=== PATIENT | female | born 1960 | race Caucasian/White ===

== ENCOUNTER 2018-03-22 13:36 | Emergency (ER) | payer BC ==
[2018-03-22] MEDS ORDERED: IPRATROPIUM/ALBUTEROL 0.5-2.5 MG/3 ML AMPUL NEB ONE (14:56)
--- NOTE | 2018-03-22 15:23 | RADIOLOGY REPORT (SQ) ---
EXAM DESCRIPTION: CHEST 2 VIEWS COMPLETED DATE/TIME: 03/22/2018 3:15 pm REASON FOR STUDY: sob COMPARISON: 12/31/2013. EXAM PARAMETERS: NUMBER OF VIEWS: two views TECHNIQUE: Digital Frontal and Lateral radiographic views of the chest acquired. RADIATION DOSE: NA LIMITATIONS: none FINDINGS: LUNGS AND PLEURA: No opacities, masses or pneumothorax. No pleural effusion. MEDIASTINUM AND HILAR STRUCTURES: No masses or contour abnormalities. HEART AND VASCULAR STRUCTURES: Heart normal size. No evidence for failure. BONES: No acute findings. Degenerative changes in the spine with scoliosis. HARDWARE: None in the chest. OTHER: No other significant finding. IMPRESSION: NO ACUTE RADIOGRAPHIC FINDING IN THE CHEST. TECHNICAL DOCUMENTATION: JOB ID: [id number] [employer]- All Rights Reserved Reading location - IP/workstation name: [email or web address]
[2018-03-22 15:40] LABS: ABSOLUTE BASOPHILS # (AUTO) 0.1 10^3/uL (0.0-0.2); ABSOLUTE LYMPHOCYTES (AUTO) 1.3 10^3/uL (0.5-4.7); ABSOLUTE MONOCYTES (AUTO) 1.3 10^3/uL (0.1-1.4); ABSOLUTE NEUT (AUTO) 16.3 10^3/uL (1.7-8.2); BASOPHILS % (AUTO) 0.5 % (0-2); EOSINOPHILS % (AUTO) 0.1 % (0-6); HEMATOCRIT 49.7 % (36.0-47.0); HEMOGLOBIN 16.6 g/dL (12.0-15.5); LYMPHOCYTES % (AUTO) 6.9 % (13-45); MEAN CORPUSCULAR HEMOGLOBIN 29.7 pg (27.0-33.4); MEAN CORPUSCULAR HGB CONC 33.5 g/dL (32.0-36.0); MEAN CORPUSCULAR VOLUME 89 fl (80-97); MONOCYTES % (AUTO) 6.9 % (3-13); PLATELET COUNT 227 10^3/uL (150-450); RED CELL DISTRIBUTION WIDTH 13.8 % (11.5-14.0); SEGMENTED NEUTROPHILS % (AUTO) 85.6 % (42-78); TOTAL CELLS COUNTED % (AUTO) 100 %
[2018-03-22 16:09] LABS: ANION GAP 12 (5-19); BLOOD UREA NITROGEN 10 mg/dL (7-20); CALCIUM 9.8 mg/dL (8.4-10.2); CARBON DIOXIDE 27 mmol/L (22-30); CHLORIDE 103 mmol/L (98-107); GLUCOSE 118 mg/dL (75-110); POTASSIUM 4.1 mmol/L (3.6-5.0)
[2018-03-22] MEDS ORDERED: NORMAL SALINE 1000 ML 1,000 ML IV ONE (16:29)
--- NOTE | 2018-03-22 17:22 | RADIOLOGY REPORT (SQ) ---
EXAM DESCRIPTION: CTA CHEST COMPLETED DATE/TIME: 03/22/2018 5:04 pm REASON FOR STUDY: elevated d dimer COMPARISON: None TECHNIQUE: CT scan of the chest performed using helical scanning technique with dynamic intravenous contrast injection. Images reviewed with lung, soft tissue and bone windows. Reconstructed coronal and sagittal MPR images reviewed. Additional 3 dimensional post-processing performed to develop Maximal Intensity Projection images (WI P). All images stored on PACS. All CT scanners at this facility use dose modulation, iterative reconstruction, and/or weight based d osing when appropriate to reduce radiation dose to as low as reasonably achievable (ALARA). [facility]: Dose Right [facility]: CareDose [facility]: Dose Right [facility]: Teradose 4D [facility]: Orgger CONTRAST TYPE AND DOSE: contrast/concentration: Isovue 370.00 mg/ml; Total Contrast Delivered: 93.0 ml; Total Saline Delivered: 90.0 ml Contrast bolus adequate for pulmonary arteries and aorta. RENAL FUNCTION: BUN 10 creatinine 0.7. RADIATION DOSE: CT Rad equipment meets quality standard of care and radiation dose reduction techniq ues were employed. CTDIvol: 33.1 - 39.7 mGy. DLP: 1452 mGy-cm. . LIMITATIONS: None. FINDINGS: LUNGS AND PLEURA: No masses, infiltrates, or pneumothorax. No pleural effusions or pleura l calcifications. AORTA AND GREAT VESSELS: No aneurysm. No dissection. HEART: No pericardial effusion. No significant coronary artery calcifications. PULMONARY ARTERIES: No emboli visualized in the main pulmonary arteries or the segmental branches. HILAR AND MEDIASTINAL STRUCTURES: No identified masses or abnormal nodes. HARDWARE: None in the chest. UPPER ABDOMEN: Calyceal calculus in the left kidney. Limited exam. THYROID AND OTHER SOFT TISSUES: No masses. No adenopathy. BONES: No acute or significant finding. 3D MIPS: Confirm above findings. OTHER: No other significant finding. IMPRESSION: NORMAL CTA OF THE CHEST. NO PULMONARY EMBOLI. COMMENT: Quality ID # [id number]: Final reports with documentation of one or more dose reduction techniques (e.g., Automated exposure control, adjustment of the mA and/or kV according to patient size, use of iterative reconstruction technique) TECHNICAL DOCUMENTATION: JOB ID: [id number] [employer]- All Rights Reserved Reading location - IP/workstation name: [email or web address]
--- NOTE | 2018-03-22 17:24 | ER Document Report ---
ED General - General Chief Complaint: Shortness Of Breath Stated Complaint: COUGH, CONGESTION Time Seen by Provider: 03/22/18 14:53 TRAVEL OUTSIDE OF THE [place] IN LAST 30 DAYS: No - HPI Patient complains to provider of: Cough congestion Notes: Patient coming in today for cough congestion ongoing greater than week. Patient was seen in urgent care started on a course of steroids however no relief in her symptoms. Patient states symptoms started after a coworker was using bleach states since that time she has been congested and feeling short of breath. Patient also states recently had travel out of state. Otherwise denies any fevers chills nausea vomiting diarrhea denies any chest pain. - Related Data Allergies/Adverse Reactions: morphine [Morphine] Adverse Reaction (Verified 03/22/18 13:39) Past Medical History - Social History Smoking Status: Former Smoker Chew tobacco use (# tins/day): No Frequency of alcohol use: None Drug Abuse: None Family History: Hypertension Patient has suicidal ideation: No Patient has homicidal ideation: No Renal/ Medical History: Denies: Hx Peritoneal Dialysis Past Surgical History: Reports: Hx Adenoidectomy, Hx Appendectomy, Hx Breast Surgery - lumpectomy Left side., Hx Cholecystectomy, Hx Hysterectomy, Hx Tonsillectomy - Immunizations Immunizations up to date: No Hx Diphtheria, Pertussis, Tetanus Vaccination: No Review of Systems - Review of Systems Constitutional: No symptoms reported EENT: No symptoms reported Cardiovascular: No symptoms reported Respiratory: Short of breath, Wheezing Gastrointestinal: No symptoms reported Genitourinary: No symptoms reported Female Genitourinary: No symptoms reported Musculoskeletal: No symptoms reported Skin: No symptoms reported Hematologic/Lymphatic: No symptoms reported Neurological/Psychological: No symptoms reported Physical Exam - Vital signs Vitals: Temp Pulse Resp BP Pulse Ox 99.6 F 113 H 20 180/98 H 96 03/22/18 13:53 03/22/18 13:53 03/22/18 13:53 03/22/18 13:53 03/22/18 13:53 Interpretation: Normal - General General appearance: Appears well, Alert - HEENT Head: Normocephalic, Atraumatic Eyes: Normal Pupils: PERRL - Respiratory Respiratory status: No respiratory distress Chest status: Nontender Breath sounds: Wheezing Chest palpation: Normal - Cardiovascular Rhythm: Regular Heart sounds: Normal auscultation Murmur: No - Abdominal Inspection: Normal Distension: No distension Bowel sounds: Normal Tenderness: Nontender Organomegaly: No organomegaly - Back Back: Normal, Nontender - Extremities General upper extremity: Normal inspection, Nontender, Normal color, Normal ROM , Normal temperature General lower extremity: Normal inspection, Nontender, Normal color, Normal ROM , Normal temperature, Normal weight bearing. No: Melida's sign - Neurological Neuro grossly intact: Yes Cognition: Normal Orientation: AAOx4 [place] Coma Scale Eye Opening: Spontaneous Golden Coma Scale Verbal: Oriented Golden Coma Scale Motor: Obeys Commands [place] Coma Scale Total: 15 Speech: Normal Motor strength normal: LUE, RUE, LLE, RLE Sensory: Normal - Psychological Associated symptoms: Normal affect, Normal mood - Skin Skin Temperature: Warm Skin Moisture: Dry Skin Color: Normal Course - Re-evaluation Re-evalutation: 03/22/18 20:28 Patient feeling better after breathing treatments does feel like it did break up some of the congestion. D-dimers elevated therefore patient had to go undergo a CTA that was otherwise negative. Time discharge noted that fluids were not given patient had slight low-grade fever of 100.4. Patient still complaining of congestion and pressure. Because of these new findings will start the patient on azithromycin for possible underlying sinusitis. I believe the patient's respiratory issues are more likely reactive airway disease. Patient will be given an inhaler for home. Patient states understanding of her diagnosis and agrees to be discharged home 03/22/18 20:29 Leukocytosis more likely from recent steroids - Vital Signs Vital signs: Temp Pulse Resp BP Pulse Ox 98.7 F 98 18 147/90 H 97 03/22/18 19:02 03/22/18 19:02 03/22/18 19:02 03/22/18 19:02 03/22/18 19:02 - Laboratory Result Diagrams: 03/22/18 15:26 03/22/18 15:26 Laboratory results interpreted by me: 03/22/18 03/22/18 03/22/18 15:26 15:26 15:26 WBC 19.0 H RBC 5.60 H Hgb 16.6 H Hct 49.7 H Seg Neutrophils % 85.6 H Lymphocytes % 6.9 L Absolute Neutrophils 16.3 H D-Dimer 0.78 H Glucose 118 H Discharge - Discharge Clinical Impression: Sinusitis Reactive airway disease Qualifiers: Asthma severity: mild Asthma persistence: unspecified Qualified Code(s): J45.909 - Unspecified asthma, uncomplicated Condition: Good Disposition: HOME, SELF-CARE Instructions: Reactive Airway Disease ([facility]), Sinusitis ([facility]) Additional Instructions: Your laboratory studies x-ray CT scan today shows no signs of cardiac ischemia pneumonia lung disease blood clots within your lungs. Do believe you have reactive airway disease basically spasming of your airways causing the cough and causing shortness of breath. This may be exacerbated by underlying sinusitis infection. We will start you on a Z-Anton today please be sure you are drinking plenty of fluids stay well-hydrated make sure you are taking the inhaler as prescribed. Follow-up with your primary care physician. We treat this with medication called albuterol. Please use the inhaler that we gave you here in ER 2 puffs every 2-4 hours as needed for shortness of breath. Also give a prescription for another inhaler. Also recommend taking over-the- counter antihistamine. Please make sure you drink plenty of fluids to stay well -hydrated return to the ER symptoms worsen. Prescriptions: Albuterol Sulfate [Proair HFA Inhalation Aerosol 8.5 gm MDI] 2 puff IH Q4H PRN # 1 mdi PRN Reason: Azithromycin [Zithromax] 250 mg PO DAILY #4 tablet Forms: Return to Work Referrals: JON SON MD [Primary Care Provider] - Follow up as needed
[2018-03-22] MEDS ORDERED: ALBUTEROL SULFATE HFA (90 MCG/PUFF) 8 GM MDI (1 MDI/ER DISP) IH ONE (17:42)
[2018-03-22] MEDS ORDERED: ACETAMINOPHEN 325 MG TABLET PO ONE (17:59)
[2018-03-22] MEDS ORDERED: AZITHROMYCIN 250 MG TABLET PO ONE (18:10)
[2018-03-22 19:04] VITALS: BP 147/90
--- NOTE | 2018-03-22 22:07 | EKG REPORT ---
SEVERITY:- OTHERWISE NORMAL ECG - SINUS TACHYCARDIA : Confirmed by: Katy Alexander MD 22-Mar-2018 22:06:58
== END 2018-03-22 19:04 | disposition home or self-care (01) ==
LOC: ER 13:36
DX: J45.909 Unspecified asthma, uncomplicated (principal); J32.9 Chronic sinusitis, unspecified; R05 Cough; R06.02 Shortness of breath; R79.1 Abnormal coagulation profile; R50.9 Fever, unspecified; D72.829 Elevated white blood cell count, unspecified; Z87.891 Personal history of nicotine dependence
CPT/HCPCS: 93005; 94640; 99285; 96360; 36415; 85025; 80048; 84484; 85379; 71046; 71275; 93010; J7030; J3490; J7620